=== PATIENT | female | born 1985 | race Caucasian/White ===

== ENCOUNTER 2020-04-03 08:29 | Emergency (ER) | payer SELFPAY ==
--- NOTE | 2020-04-03 08:34 | ER Document Report ---
ED General - General Chief Complaint: Psych Problem Stated Complaint: PSYCH Time Seen by Provider: 04/03/20 08:32 Primary Care Provider: [facility] [Outside] - Follow up as needed Notes: 35-year female presents with agitation in setting of alcohol use. Was try to check herself into rehab, could not get in and was picked up on the side of the road by a bystander. EMS found her with no trauma, blood glucose of 200 normal vital signs but she was thrashing so wildly they ended up giving her IM ketamine. This was given about 30 minutes prior to ED arrival and her behaviors been controlled ever since. There is no mention of trauma or coingestions. There is no mention of SI or HI. - Related Data Allergies/Adverse Reactions: No Known Allergies Allergy (Unverified 04/03/20 08:42) Past Medical History - General Information source: Patient, Emergency Med Personnel Cannot obtain history due to: Intoxicated - Social History Smoking Status: Unknown if Ever Smoked Family History: None Review of Systems - Review of Systems Notes: REVIEW OF SYSTEMS PHYSICAL EXAMINATION General: No acute distress, well-nourished Head: Atraumatic, normocephalic ENT: Mouth normal, oropharynx moist, no exudates or tonsillar enlargement Eyes: Conjunctiva normal, pupils equal, lids normal Neck: No JVD, supple, no guarding CVS: Normal rate, regular rhythm, no murmurs Resp: No resp distress, equal and normal breath sounds bilaterally GI: Nondistended, soft, no tenderness to palpation, no rebound or guarding Ext: No deformities, no edema, normal range of motion in upper and lower ext Back: No CVA or midline TTP Skin: No rash, warm Lymphatic: No lymphadeopathy noted Neuro: Sleepy but arouses to voice. Mild nystagmus. Moving all extremities. -: Yes ROS unobtainable due to patient's medical condition Physical Exam - Vital signs Vitals: Temp Pulse Resp BP Pulse Ox 97.3 F 115 H 16 130/85 H 98 04/03/20 08:29 04/03/20 08:29 04/03/20 08:29 04/03/20 08:29 04/03/20 08:29 Course - Re-evaluation Re-evalutation: 04/03/20 08:33 Alcohol intoxication No indication of trauma Blood sugar does not appear low, this is likely a pure intoxication plus or jonathan s congestion No evidence of psychiatric emergency will allow to metabolize 04/03/20 09:21 Reevaluated 9:20 AM. Coughing and says that she smokes a lot of cigarettes. Lungs are clear. Still altered, suspect accommodation of alcohol ketamine. Hypertensive and tachycardic. She has a lines are going to hydrate her, and treat her in case she is either having an emergence reaction or having a mild alcohol withdrawal syndrome 04/03/20 15:20 Patient was observed to walk well, a little emotional, but no psych emergency and certainly capable of ambulating without issue. Will refer to [facility] for crisis intervention/detoxification. I have discussed with the patient there likely diagnosis, aftercare plan, follow-up plans and my usual and customary return precautions. They verbalized understanding of this. - Vital Signs Vital signs: Temp Pulse Resp BP Pulse Ox 97.3 F 115 H 16 130/85 H 98 04/03/20 08:29 04/03/20 08:29 04/03/20 08:29 04/03/20 08:29 04/03/20 08:29 Discharge - Discharge Clinical Impression: Alcohol abuse Condition: Good Disposition: HOME, SELF-CARE Referrals: [facility] [Outside] - Follow up as needed
[2020-04-03 08:36] VITALS: BP 130/85
[2020-04-03] MEDS ORDERED: NORMAL SALINE 1000 ML 1,000 ML IV ONE (09:06)
[2020-04-03] MEDS ORDERED: MIDAZOLAM 2 MG/2 ML INJ IV ONE (09:07)
== END 2020-04-03 11:02 | disposition home or self-care (01) ==
LOC: ER 08:29
DX: F10.129 Alcohol abuse with intoxication, unspecified (principal); I10 Essential (primary) hypertension; R00.0 Tachycardia, unspecified; F17.210 Nicotine dependence, cigarettes, uncomplicated; R05 Cough
CPT/HCPCS: 99284; 96361; 96374; J2250; J7030

== ENCOUNTER 2020-04-03 12:12 | Emergency (ER) | payer SELFPAY ==
--- NOTE | 2020-04-03 12:23 | ER Document Report ---
ED General - General Chief Complaint: Altered Mental Status Stated Complaint: ALTERED MENTAL STATUS Primary Care Provider: [facility] [Outside] - Follow up as needed Notes: Patient presents having been found face down next to [facility]. Now awake and alert. Emotional. Has already been seen in the ED today secondary to alcohol use. Denies SI denies HI. - Related Data Allergies/Adverse Reactions: No Known Allergies Allergy (Unverified 04/03/20 08:42) Past Medical History - General Information source: Patient - Social History Smoking Status: Unknown if Ever Smoked Family History: Reviewed & Not Pertinent Review of Systems - Review of Systems Notes: REVIEW OF SYSTEMS GEN: Denies fever, chills, weight loss ENT: Denies sore throat, nasal discharge, ear pain EYES: Denies blurry vision, eye pain, discharge CV: Denies chest pain, palpitations, edema RESP: Denies cough, shortness of breath, wheezing GI: Denies abdominal pain, nausea, vomiting, diarrhea MSK: Denies joint pain/swelling, edema, SKIN: Denies rash, skin lesions LYMPH: Denies swollen glands/lymph nodes NEURO: Denies headache, focal weakness or numbness, dizziness PSYCH: Denies depression, suicidal or homicidal ideation PHYSICAL EXAMINATION General: No acute distress, well-nourished Head: Atraumatic, normocephalic ENT: Mouth normal, oropharynx moist, no exudates or tonsillar enlargement Eyes: Conjunctiva normal, pupils equal, lids normal Neck: No JVD, supple, no guarding CVS: Normal rate, regular rhythm, no murmurs Resp: No resp distress, equal and normal breath sounds bilaterally GI: Nondistended, soft, no tenderness to palpation, no rebound or guarding Ext: No deformities, no edema, normal range of motion in upper and lower ext Back: No CVA or midline TTP Skin: No rash, warm Lymphatic: No lymphadeopathy noted Neuro: Awake, alert. Face symmetric. GCS 15. Course - Re-evaluation Re-evalutation: 04/03/20 12:46 Revisit, was likely sleeping or passed out but is now awake alert and walking. No evidence of head trauma the vital signs and mental status are normal. Patient is highly stable for halfway/crisis center/detoxification I have discussed with the patient there likely diagnosis, aftercare plan, follow-up plans and my usual and customary return precautions. They verbalized understanding of this. Discharge - Discharge Clinical Impression: Alcohol abuse Condition: Good Disposition: HOME, SELF-CARE Referrals: [facility] [Outside] - Follow up as needed
[2020-04-03 12:48] VITALS: BP 132/85
== END 2020-04-03 12:50 | disposition home or self-care (01) ==
LOC: ER 12:12
DX: F10.10 Alcohol abuse, uncomplicated (principal)
CPT/HCPCS: 99283